=== PATIENT | female | born 1985 | race Caucasian/White ===

== ENCOUNTER → 2019-06-20 13:14 | Outpatient (CLI) | payer OTHER ==
[2010-01-18 06:50] VITALS: BMI 22.0
[2019-06-20 14:47] LABS: BILIRUBIN NEGATIVE (NEGATIVE); GLUCOSE NEGATIVE (NEGATIVE); KETONE NEGATIVE (NEGATIVE); NITRITE NEGATIVE (NEGATIVE); UROBILINOGEN NORMAL (NORMAL)
[2019-06-20 16:24] LABS: BASOPHILS 0.1 % (0-2); EOSINOPHILS 0.7 % (0-7); HEMATOCRIT 37.7 % (36.0-48.0); HEMOGLOBIN 12.7 g/dL (12-16); IMMATURE GRANULOCYTES 0.3 % (0-5); LYMPHOCYTES 16.7 % (15-50); MCH 30.4 pg (26.0-34.0); MCHC 33.7 g/dL (31.0-37.0); MCV 90.2 fL (80.0-100.0); MEAN PLATELET VOLUME 10.9 fL (7.4-10.4); MONOCYTES 6.3 % (2-11); NEUTROPHILS 75.9 % (40-80); RBC 4.18 10x6/uL (4.00-5.40); RDW 13.6 % (11.5-14.5); WBC 10.1 10x3/uL (4.8-10.8)
[2019-06-20 16:26] LABS: PLATELET COUNT 276 10x3/uL (130-400)
[2019-06-20 16:33] LABS: CALC OSMOLALITY 271 mosm/kg (275-300); CALCIUM 8.8 mg/dL (8.5-10.1); CARBON DIOXIDE 26.2 mmol/L (21.0-32.0); CHLORIDE - SERUM 105 mmol/L (98-107); CREATININE - SERUM 0.9 mg/dL (0.6-1.3); GLUCOSE 86 mg/dL (74-106); POTASSIUM - SERUM 4.3 mmol/L (3.5-5.1); SODIUM 137 mmol/L (136-145); UREA NITROGEN 10 mg/dL (7-18); eGFR NON AFRICAN AMERICAN 76 mL/min (90-120)
[2019-06-20 16:38] LABS: ALBUMIN 2.6 g/dL (3.4-5.0); ALKALINE PHOSPHATASE 137 U/L (30-120); ALT (SGPT) 24 U/L (10-68); BILIRUBIN - DIRECT 0.07 mg/dL (0.00-0.30); BILIRUBIN - INDIRECT 0.07 mg/dL (0.00-1.00); BILIRUBIN - TOTAL 0.14 mg/dL (0.2-1.3); PROTEIN - SERUM 6.9 g/dL (6.4-8.2); URIC ACID 5.9 mg/dL (2.6-7.2)
== END | disposition home or self-care (01) ==
LOC: D.LDO 13:14
PROVIDERS: ATTEND Obstetrics & Gynecology
DX: O36.8130 Decreased fetal movements, third trimester, not applicable or unspecified (principal); Z3A.36 36 weeks gestation of pregnancy

== ENCOUNTER → 2020-07-11 16:42 | Outpatient (CLI) | payer BC ==
[2010-01-18 06:50] VITALS: BMI 22.0
== END | disposition home or self-care (01) ==
LOC: D.RAD 16:42
PROVIDERS: ATTEND Family Medicine
DX: M25.531 Pain in right wrist (principal)